=== PATIENT | female | born 1975 | race Hispanic/Latino ===

== ENCOUNTER 2021-05-22 14:45 | Emergency (ER) | payer SELFPAY ==
[2021-05-22] MEDS ORDERED: SODIUM CHLORIDE 0.9% 1000 ML 1,000 ML IV ONE (14:48)
--- NOTE | 2021-05-22 14:54 | Emergency Department Report ---
History of Present Illness - General Chief Complaint: Altered Mental Status Stated Complaint: OVERDOSE Time Seen by Provider: 05/22/21 14:48 Source: patient, EMS - History of Present Illness Initial Comments: Patient is 45 years old female with history of schizophrenia. Patient recently released from [facility] with prescription for Ativan 2mg quantity of 60 tablets. Patient brought to the emergency room via EMS from home after family found that patient is altered and her Ativan bottle is only half 12 tablets left. Patient is alert however with significant slurred speech. Family also reported that patient has been using meth. Patient is unable to answer question appropriately. Vital sign stable with oxygen saturation of 100% on room air. Will monitor patient closely. MD Complaint: intentional overdose -: This afternoon Intent: unwilling to say How Overdose Was Discovered: family/friend present Treatments Prior to Arrival: IV fluids - Related Data Allergies Allergy/AdvReac Type Severity Reaction Status Date / Time No Known Allergies Allergy Unverified 05/22/21 15:06 ED Review of Systems ROS: Stated complaint: OVERDOSE Other details as noted in HPI Comment: All other systems reviewed and negative Constitutional: denies: chills, fever Respiratory: denies: cough, shortness of breath, SOB with exertion Cardiovascular: denies: chest pain, palpitations Gastrointestinal: denies: abdominal pain, nausea, vomiting, diarrhea, constipation, hematochezia Musculoskeletal: denies: back pain Neurological: denies: headache, weakness, numbness, paresthesias, confusion ED Physical Exam - General General appearance: alert, in no apparent distress - Head Head exam: Present: atraumatic, normocephalic - Eye Eye exam: Present: normal appearance - ENT ENT exam: Present: normal exam, normal orophraynx, mucous membranes moist - Neck Neck exam: Present: normal inspection, full ROM. Absent: tenderness, meningismus - Respiratory Respiratory exam: Present: normal lung sounds bilaterally - Cardiovascular Cardiovascular Exam: Present: regular rate, normal rhythm, normal heart sounds - GI/Abdominal GI/Abdominal exam: Present: soft, normal bowel sounds. Absent: distended, tenderness, guarding, rebound, rigid, organomegaly, mass, bruit, pulsatile mass, hernia - Extremities Exam Extremities exam: Present: normal inspection, full ROM, normal capillary refill. Absent: tenderness - Back Exam Back exam: Present: normal inspection, full ROM. Absent: CVA tenderness (R), CVA tenderness (L) - Neurological Exam Neurological exam: Present: alert, oriented X3, CN II-XII intact, reflexes normal. Absent: motor sensory deficit - Psychiatric Psychiatric exam: Present: flat affect - Skin Skin exam: Present: warm, intact, normal color ED Course Vital Signs 05/22/21 05/22/21 05/22/21 14:49 16:28 17:01 Temperature 97.7 F Pulse Rate 87 89 Pulse Rate [ Bilateral Throughout] Respiratory 16 23 Rate Respiratory Rate [Bilateral Throughout] Blood Pressure 112/63 168/85 Blood Pressure 112/63 [Right] O2 Sat by Pulse 99 98 98 Oximetry 05/22/21 05/22/21 05/22/21 17:40 18:01 18:23 Temperature Pulse Rate 93 H 97 H Pulse Rate [ Bilateral Throughout] Respiratory 23 18 Rate Respiratory Rate [Bilateral Throughout] Blood Pressure 148/91 148/91 142/83 Blood Pressure [Right] O2 Sat by Pulse 85 98 99 Oximetry 05/22/21 05/22/21 05/22/21 18:42 19:01 20:00 Temperature 98.6 F Pulse Rate 96 H 96 H 86 Pulse Rate [ Bilateral Throughout] Respiratory 18 18 20 Rate Respiratory Rate [Bilateral Throughout] Blood Pressure 136/86 Blood Pressure 143/86 144/92 [Right] O2 Sat by Pulse 98 98 98 Oximetry 05/22/21 05/22/21 05/23/21 20:01 22:01 01:01 Temperature Pulse Rate 86 87 87 Pulse Rate [ Bilateral Throughout] Respiratory 19 17 21 Rate Respiratory Rate [Bilateral Throughout] Blood Pressure 144/92 115/66 115/66 Blood Pressure [Right] O2 Sat by Pulse 99 99 97 Oximetry 05/23/21 05/23/21 05/23/21 03:40 08:53 10:03 Temperature 97.8 F 98.4 F Pulse Rate 83 79 Pulse Rate [ 18 L Bilateral Throughout] Respiratory 16 18 Rate Respiratory 82 H Rate [Bilateral Throughout] Blood Pressure Blood Pressure 113/72 115/59 [Right] O2 Sat by Pulse 98 97 Oximetry 05/23/21 05/23/21 05/24/21 21:27 22:38 02:46 Temperature 99.2 F 98.4 F Pulse Rate 89 85 Pulse Rate [ Bilateral Throughout] Respiratory 18 18 18 Rate Respiratory Rate [Bilateral Throughout] Blood Pressure Blood Pressure 127/80 117/70 [Right] O2 Sat by Pulse 98 98 95 Oximetry 05/24/21 12:34 Temperature 98.8 F Pulse Rate 82 Pulse Rate [ Bilateral Throughout] Respiratory 16 Rate Respiratory Rate [Bilateral Throughout] Blood Pressure Blood Pressure 109/68 [Right] O2 Sat by Pulse 99 Oximetry ED Medical Decision Making - Lab Data Result diagrams: 05/22/21 15:07 05/22/21 15:07 - EKG Data -: EKG Interpreted by Nm EKG shows normal: sinus rhythm Rate: normal - EKG Data Interpretation: no acute changes - Medical Decision Making Patient is 45 years old female with history of schizophrenia. Patient recently released from [facility] with prescription for Ativan 2mg quantity of 60 tablets. Patient brought to the emergency room via EMS from home after family found that patient is altered and her Ativan bottle is only half 12 tablets left. Patient is alert however with significant slurred speech. F melinda also reported that patient has been using meth. Patient is unable to answer question appropriately. Vital sign stable with oxygen saturation of 100% on room air. Will monitor patient closely. Patient remained stable in the ER with a stable vital sign. Oxygen saturation remained 100% on room air. Labs reviewed and is unremarkable. Poison control contacted and stated that patient can be observed for 6 hours and then can be medically cleared after that for psychiatric assessment. Patient should be medically by 9 pm. Critical Care Time: Yes Critical care time in (mins) excluding proc time.: 35 Critical care attestation.: If time is entered above; I have spent that time in minutes in the direct care of this critically ill patient, excluding procedure time. ED Disposition Clinical Impression: Benzodiazepine overdose Disposition: [address] [place] [address] Is pt being admited?: No Condition: Stable Referrals: PRIMARY CARE, [Primary Care Provider] - 3-5 Days
[2021-05-22 15:35] LABS: Mean Corpuscular HGB Conc 30 % (30-34); Red Blood Count 4.48 M/mm3 (3.65-5.03)
[2021-05-22 15:47] LABS: Blood Urea Nitrogen 13 mg/dL (7-17); Calcium 8.8 mg/dL (8.4-10.2); Hemolysis Index 3
[2021-05-22 15:50] LABS: BUN/Creatinine Ratio 19
[2021-05-22 15:51] LABS: Alanine Aminotransferase 8 units/L (7-56); Albumin 3.9 g/dL (3.9-5)
[2021-05-22 15:55] LABS: Bilirubin,Direct < 0.2 mg/dL (0-0.2); Hematocrit 29.9 % (30.3-42.9); Hemoglobin 8.9 gm/dl (10.1-14.3); Mean Corpuscular Volume 67 fl (79-97); Red Cell Distribution Width 26.2 % (13.2-15.2)
[2021-05-22 17:49] LABS: Total Cells Counted 100
[2021-05-22 17:55] LABS: Anisocytosis 2+; Hypochromasia 2+; Ovalocytes Few; Platelet Estimate Consistent w Auto; Tear Drop Cells Few
[2021-05-22 18:00] LABS: Platelet Count 228 K/mm3 (140-440)
[2021-05-22 18:25] LABS: Bilirubin,Urine NEG (Negative); Blood,Urine SM (Negative); Color,Urine Straw (Yellow); Protein,Urine <15 mg/dL mg/dL (Negative); Urobilinogen,Urine < 2.0 mg/dL (<2.0)
[2021-05-22 18:27] LABS: Amphetamine Screen,Urine Negative; Benzodiazepines Screen,Urine Negative; Cannabinoid Screen,Urine Negative; Cocaine Screen,Urine Negative; Methadone Screen,Urine Negative; Opiate Screen,Urine Negative
--- NOTE | 2021-05-23 08:57 | Electrocardiograph Report ---
[facility] Test Date: 2021-05-22 Test Time: 16:13:03 Pat Name: REUBEN BERUMEN Department: Room: Gender: F Heel Turner: ED : 1975 Requested By: ТАТЬЯНА MOORE Order Number: [id number] Reading MD: Curly Ortiz Measurements Intervals [place] Rate: 88 P: 50 MO: 169 QRS: 14 QRSD: 97 T: 31 QT: 381 QTc: 462 Interpretive Statements Sinus rhythm Probable left atrial enlargement Low voltage, precordial leads No previous ECG available for comparison Electronically Signed On 05-23-2021 8:57:29 EST by Curly Ortiz
[2021-05-23] MEDS ORDERED: ALBUTEROL 2.5 MG/3 ML NEBU IH PRN (09:08)
--- NOTE | 2021-05-24 10:54 | Consultation ---
History of Present Illness - Reason for Consult Consult date: 05/24/21 Reason for consult: psychosis - History of Present Psychiatric Illness The patient was seen today. She is a 45y/o female patient with a history of schizophrenia, who overdosed on ativan. During my evaluation, the patient is a/o x 3. She is calm and cooperative. The patient says she wasn't long released from [place]. She tells me that she took a lot of ativan. She says her son called because she had taken too many. The patient says "I didn't realized I took so many. When asking the patient how she didn't realize she took so many, she replies "I don't know." When asking was she SI/HI the patient says "no, I really didn't know I took that many." The patient does verbalize being depressed. She denies hallucinations of any kind. PAST PSYCHIATRIC HISTORY: Diagnoses: schizophrenia Suicide attempts or Self-harm behavior: Yes Prior psychiatric hospitalizations: Yes Substance Abuse history: Denies Previous psychiatric medications tried: Benzos Outpatient treatment: Yes PAST MEDICAL HISTORY: None reported or document Family Psychiatric History: None reported or documented SOCIAL HISTORY Marital Status: Single Living Arrangements: Lives with son Employment Status: Disabled Access to guns/weapons: Denies Education: History of Abuse: Denies Legal History: Denies REVIEW OF SYSTEMS Constitutional: Negative for weight loss ENT: Negative for stridor Respiratory: Negative for cough or hemoptysis All other systems reviewed and are negative MENTAL STATUS EXAMINATION General Appearance and Behavior: Age appropriate, good hygiene, wearing appropriate clothes. calm, cooperative Cooperation: cooperative Psychomotor Behavior: Psychomotor normal Mood: depressed Affect and affective range: congruent with stated mood Thought Process: goal directed Thought Content: depression Speech: Normal tone and pace Suicidal Ideation: Denies Homicidal Ideation: Denies Hallucinations: Denies Delusions: none elicited Impulse Control: impaired Insight and Judgment: Limited Memory: limited Attention: Attentive Orientation: alert and oriented Assessment and Plan (1) Schizophrenia (2) Intentional Overdose on Benzodiazepines Treatment Plan 1013 Zoloft 25mg po daily Vistaril 50mg po BID Lorazepam 1mg IM q4h prn anxiety/benzo withdrawal Sitter: per primary Medical: per primary Disposition: Recommend acute psychiatric inpatient treatment Will follow. Thanks. Case staffed with Dr. Gonzáles Medications and Allergies Allergies Allergy/AdvReac Type Severity Reaction Status Date / Time No Known Allergies Allergy Unverified 05/22/21 15:06 Active Meds: Active Medications Albuterol (Albuterol 2.5 Mg/3 Ml Nebu) 2.5 mg IH PRN PRN PRN Reason: Wheezing Last Admin: 05/23/21 10:02 Dose: 2.5 mg Documented by: Mental Status Exam - Vital signs Last Vital Signs Temp 98.4 F 05/24/21 02:46 Pulse 85 05/24/21 02:46 Resp 18 05/24/21 02:46 BP 117/70 05/24/21 02:46 Pulse Ox 95 05/24/21 02:46 Results Result Diagrams: 05/22/21 15:07 05/22/21 15:07 All other labs normal.
--- NOTE | 2021-05-24 11:23 | Event Note ---
Date: 05/24/21 S: No overnight events. O: Vital signs stable. Patient calm and cooperative. A: Schizophrenia, overdose P: Continue 1013. Awaiting inpatient psychiatric placement.
[2021-05-24] MEDS ORDERED: SERTRALINE 25 MG TAB PO SCH (12:00)
[2021-05-24] MEDS ORDERED: LORazepam 2 MG/ML VIAL IM PRN (12:02)
[2021-05-24 12:35] VITALS: BP 109/68
== END 2021-05-24 17:01 ==
LOC: ED 14:45 → EEVIPCON 14:45 → ED 05-24 17:01
DX: T42.4X1A Poisoning by benzodiazepines, accidental (unintentional), initial encounter (principal); Z20.822 Contact with and (suspected) exposure to COVID-19; Y92.89 Other specified places as the place of occurrence of the external cause
CPT/HCPCS: 36415; 80048; 80076; 80307; 81001; 84703; 85007; 85025; 93005; 94644; 96360; 96372; 99285; J2060; J7030; Q0177; U0003; 80320; Q0162; G0480

== ENCOUNTER 2021-08-27 11:53 | Emergency (ER) | payer MEDICAID ==
[2021-08-27 12:08] VITALS: BP 135/87
--- NOTE | 2021-08-27 12:22 | Emergency Department Report ---
ED General Adult HPI - General Chief complaint: Pain General Stated complaint: LT TOE PAIN Time Seen by Provider: 08/27/21 12:18 Source: patient Mode of arrival: Ambulatory Limitations: No Limitations - History of Present Illness Initial comments: 45-year-old occasion female who is obese presents to the emergency room complaining of left foot toes are numb. Patient is in a Unna boot on her right foot. States that she saw her orthopedist yesterday and he gave her a Toradol injection. She comes in requesting for MRI. She states that her orthopedist probably can get it done for several days. Patient is on multiple narcotics and gabapentin. Patient had a recent overdose in July 14, 2021. She was admitted to the hospital for several days for acute renal failure overdose CK elevation rhabdomyolysis and tramitis. Patient complains of back pain that is followed by orthopedics as well. -: month(s) Location: left, lower extremity (Toes) Severity scale (0 -10): 10 Quality: aching, other (Numbness) Consistency: constant Improves with: none Worsens with: none Associated Symptoms: denies other symptoms - Related Data Previous Rx's Medication Instructions Recorded Last Taken Type Divalproex Dr [DepaKOTE DR] 500 mg PO BID 30 Days #60 tablet 07/25/21 Unknown Rx Ferrous Gluconate [Fergon 325 MG 325 mg PO QDAY #30 tablet 07/25/21 Unknown Rx tab] Mirtazapine [Remeron 15mg TAB] 7.5 mg PO QHS #14 tablet 07/25/21 Unknown Rx Venlafaxine [Effexor 37.5mg tab] 37.5 mg PO BID 30 Days #60 tab 07/25/21 Unknown Rx cloNIDine-TTS PATCH [Catapres-Tts 0.2 mg TD Orozco #7 patch 07/25/21 Unknown Rx 0.2mg Patch] haloperidoL [Haldol] 1 mg PO BID 30 Days #60 07/25/21 Unknown Rx hydrALAZINE [Apresoline TAB] 50 mg PO Q8HR #90 tablet 07/25/21 Unknown Rx Allergies Allergy/AdvReac Type Severity Reaction Status Date / Time morphine Allergy Unknown Verified 08/05/21 08:23 ED Review of Systems ROS: Stated complaint: LT TOE PAIN Other details as noted in HPI Comment: All other systems reviewed and negative ED Past Medical Hx - Past Medical History Previous Medical History?: Yes Hx Hypertension: Yes Hx Psychiatric Treatment: Yes (Bipolar disorder, schizoaffective) Additional medical history: Back Pain, right foot pain, right hip pain multiple overdose - Surgical History Past Surgical History?: Yes Additional Surgical History: tubal ligation, right knee surgery - Social History Smoking Status: Unknown if ever smoked - Medications Home Medications: Home Medications Medication Instructions Recorded Confirmed Last Taken Type Divalproex Dr [DepaKOTE DR] 500 mg PO BID 30 Days #60 tablet 07/25/21 Unknown Rx Ferrous Gluconate [Fergon 325 MG 325 mg PO QDAY #30 tablet 07/25/21 Unknown Rx tab] Mirtazapine [Remeron 15mg TAB] 7.5 mg PO QHS #14 tablet 07/25/21 Unknown Rx Venlafaxine [Effexor 37.5mg tab] 37.5 mg PO BID 30 Days #60 tab 07/25/21 Unknown Rx cloNIDine-TTS PATCH [Catapres-Tts 0.2 mg TD Orozco #7 patch 07/25/21 Unknown Rx 0.2mg Patch] haloperidoL [Haldol] 1 mg PO BID 30 Days #60 07/25/21 Unknown Rx hydrALAZINE [Apresoline TAB] 50 mg PO Q8HR #90 tablet 07/25/21 Unknown Rx ED Physical Exam - General Limitations: No Limitations General appearance: alert, in no apparent distress - Head Head exam: Present: atraumatic, normocephalic - Eye Eye exam: Present: normal appearance - ENT ENT exam: Present: mucous membranes moist, normal external ear exam - Neck Neck exam: Present: full ROM - Respiratory Respiratory exam: Absent: respiratory distress, accessory muscle use - Cardiovascular Cardiovascular Exam: Present: regular rate - Expanded Lower Extremity Exam Left Upper Leg exam: Present: normal inspection, full ROM Knee exam: Present: normal inspection, full ROM Lower Leg exam: Present: normal inspection, full ROM Foot/Toe exam: Present: normal inspection, full ROM. Absent: tenderness, swelling, abrasion, ecchymosis, deformity, dislocation, erythema Neuro vascular tendon exam: Present: no vascular compromise. Absent: pulse deficit Gait: Positive: antalgic (Patient is wearing a Unna boot on her right foot) ED Course Vital Signs 08/27/21 12:04 Temperature 97.7 F Pulse Rate 88 Respiratory 20 Rate Blood Pressure 135/87 [Right] O2 Sat by Pulse 99 Oximetry ED Medical Decision Making - Medical Decision Making 45-year-old occasion female who is obese presents to the emergency room complaining of left foot toes are numb. Patient is in a Unna boot on her right foot. States that she saw her orthopedist yesterday and he gave her a Toradol injection. She comes in requesting for MRI. She states that her orthopedist probably can get it done for several days. Patient is on multiple narcotics and gabapentin. Patient had a recent overdose in July 14, 2021. She was admitted to the hospital for several days for acute renal failure overdose CK elevation rhabdomyolysis and tramitis. Patient complains of back pain that is followed by orthopedics as well. Patient has a history of schizophrenia bipolar polysubstance abuse Critical care attestation.: If time is entered above; I have spent that time in minutes in the direct care of this critically ill patient, excluding procedure time. ED Disposition Clinical Impression: Numbness of toes, Back pain Disposition: HOME / SELF CARE / HOMELESS Is pt being admited?: No Does the pt Need Aspirin: No Condition: Stable Instructions: Chronic Back Pain, [id number] Additional Instructions: Recommend to follow-up orthopedist as they are able to order event studies. Continue with your pain medication. Tylenol [id number] as needed. Referrals: Your, orthopedist [Other] - 3-5 Days Time of Disposition: 12:24
== END 2021-08-27 12:59 | disposition home or self-care (01) ==
LOC: ED 11:53
DX: R20.2 Paresthesia of skin (principal); M54.9 Dorsalgia, unspecified; I10 Essential (primary) hypertension; F31.9 Bipolar disorder, unspecified; Z88.5 Allergy status to narcotic agent
CPT/HCPCS: 99282

== ENCOUNTER 2021-12-15 21:44 | Emergency (ER) | payer MEDICAID ==
[2021-12-16] MEDS ORDERED: KETOROLAC 30 MG/1 ML INJ IM ONE (08:52)
--- NOTE | 2021-12-16 09:23 | Emergency Department Report ---
ED General Adult HPI - General Chief complaint: Medical Clearance Stated complaint: MEDICATION REFILL Source: EMS Mode of arrival: Ambulatory Limitations: No Limitations - History of Present Illness Initial comments: 46-year-old female presents to the ED medication refill. Patient has a history of schizophrenia ,hypertension, , and PTSD. Patient also complaining of right leg pain. She states that she is having surgery on November. She states that she has been waiting and would like to have something for pain states that pain is current 10 out of 10. She denies any suicidal homicidal ideation. She has a current walking boot on the right leg. Patient is alert and oriented x3. No acute distress noted .No ill appearance noted. Severity scale (0 -10): 0 - Related Data Previous Rx's Medication Instructions Recorded Last Taken Type Divalproex Dr [DepaKOTE DR] 500 mg PO BID 30 Days #60 tablet 07/25/21 Unknown Rx Ferrous Gluconate [Fergon 325 MG 325 mg PO QDAY #30 tablet 07/25/21 Unknown Rx tab] Mirtazapine [Remeron 15mg TAB] 7.5 mg PO QHS #14 tablet 07/25/21 Unknown Rx Venlafaxine [Effexor 37.5mg tab] 37.5 mg PO BID 30 Days #60 tab 07/25/21 Unknown Rx cloNIDine-TTS PATCH [Catapres-Tts 0.2 mg TD Orozco #7 patch 07/25/21 Unknown Rx 0.2mg Patch] haloperidoL [Haldol] 1 mg PO BID 30 Days #60 07/25/21 Unknown Rx hydrALAZINE [Apresoline TAB] 50 mg PO Q8HR #90 tablet 07/25/21 Unknown Rx Gabapentin 400 mg PO Q8HR 15 Days #30 capsule 12/16/21 Unknown Rx QUEtiapine [SEROquel] 200 mg PO DAILY 30 Days #30 tab 12/16/21 Unknown Rx levETIRAcetam [Keppra TAB] 250 mg PO TID 15 Days #30 tab 12/16/21 Unknown Rx Allergies Allergy/AdvReac Type Severity Reaction Status Date / Time morphine Allergy Unknown Verified 08/05/21 08:23 ED Review of Systems ROS: Stated complaint: MEDICATION REFILL Other details as noted in HPI Constitutional: denies: chills, fever Eyes: denies: eye pain, eye discharge, vision change ENT: denies: ear pain, throat pain Respiratory: denies: cough, shortness of breath, wheezing Cardiovascular: denies: chest pain, palpitations Endocrine: no symptoms reported Gastrointestinal: denies: abdominal pain, nausea, diarrhea Genitourinary: denies: urgency, dysuria, discharge Musculoskeletal: denies: back pain, joint swelling, arthralgia Skin: denies: rash, lesions Neurological: denies: headache, weakness, paresthesias Psychiatric: denies: anxiety, depression Hematological/Lymphatic: denies: easy bleeding, easy bruising ED Past Medical Hx - Past Medical History Previous Medical History?: Yes Hx Hypertension: Yes Hx Psychiatric Treatment: Yes (Bipolar disorder, schizoaffective) Additional medical history: Back Pain, right foot pain, right hip pain multiple overdose - Surgical History Past Surgical History?: Yes Additional Surgical History: tubal ligation, right knee surgery - Social History Smoking Status: Unknown if ever smoked Substance Use Type: None - Medications Home Medications: Home Medications Medication Instructions Recorded Confirmed Last Taken Type Divalproex [Vita PALACIOS] 500 mg PO BID 30 Days #60 tablet 07/25/21 Unknown Rx Ferrous Gluconate [Fergon 325 MG 325 mg PO QDAY #30 tablet 07/25/21 Unknown Rx tab] Mirtazapine [Remeron 15mg TAB] 7.5 mg PO QHS #14 tablet 07/25/21 Unknown Rx Venlafaxine [Effexor 37.5mg tab] 37.5 mg PO BID 30 Days #60 tab 07/25/21 Unknown Rx cloNIDine-TTS PATCH [Catapres-Tts 0.2 mg TD Orozco #7 patch 07/25/21 Unknown Rx 0.2mg Patch] haloperidoL [Haldol] 1 mg PO BID 30 Days #60 07/25/21 Unknown Rx hydrALAZINE [Apresoline TAB] 50 mg PO Q8HR #90 tablet 07/25/21 Unknown Rx Gabapentin 400 mg PO Q8HR 15 Days #30 capsule 12/16/21 Unknown Rx QUEtiapine [SEROquel] 200 mg PO DAILY 30 Days #30 tab 12/16/21 Unknown Rx levETIRAcetam [Keppra TAB] 250 mg PO TID 15 Days #30 tab 12/16/21 Unknown Rx ED Physical Exam - General Limitations: No Limitations General appearance: alert, in no apparent distress - Head Head exam: Present: atraumatic, normocephalic - Eye Eye exam: Present: normal appearance - ENT ENT exam: Present: mucous membranes moist - Neck Neck exam: Present: normal inspection - Respiratory Respiratory exam: Present: normal lung sounds bilaterally. Absent: respiratory distress - Cardiovascular Cardiovascular Exam: Present: regular rate, normal rhythm. Absent: systolic murmur, diastolic murmur, rubs, gallop - GI/Abdominal GI/Abdominal exam: Present: soft, normal bowel sounds - Extremities Exam Extremities exam: Present: normal inspection - Back Exam Back exam: Present: normal inspection - Neurological Exam Neurological exam: Present: alert, oriented X3 - Psychiatric Psychiatric exam: Present: normal affect, normal mood - Skin Skin exam: Present: warm, dry, intact, normal color. Absent: rash ED Course Vital Signs 12/15/21 21:53 Temperature 97.8 F Pulse Rate 82 Respiratory 18 Rate Blood Pressure 130/64 O2 Sat by Pulse 96 Oximetry ED Medical Decision Making - Medical Decision Making 46-year-old female presents to the ED medication refill. Patient has a history of schizophrenia ,hypertension, and PTSD. Patient also complaining of right leg pain. She states that she is having surgery on November. She states that she has been waiting and would like to have something for pain states that pain is current 10 out of 10. She denies any suicidal homicidal ideation. She has a current walking boot on the right leg. Patient is alert and oriented x3. No acute distress noted .No ill appearance noted. Physical examination is unremarkable She medication refill for Seroquel, Keppra, and gabapentin. Rechecked the patient is resting quietly quietly and comfortable and feeling better. I discussed the results of diagnostic study, my clinical impression and the plan for further treatment with the patient. Patient agrees with plan and discharge at this present time. All question addressed. I have given the patient instruction regarding a diagnosis ,expectation ,follow- up and return precaution. I explained to the patient that emergent condition may arise and to return to the ED for new worsen and any new persisting condition. I have explained the importance of following up with the primary care physician or referral physician listed below has instructed. The patient verbalized understanding of discharge instruction. Critical care attestation.: If time is entered above; I have spent that time in minutes in the direct care of this critically ill patient, excluding procedure time. ED Disposition Clinical Impression: Medication refill Disposition: 01 HOME / SELF CARE / HOMELESS Is pt being admited?: No Does the pt Need Aspirin: No Condition: Stable Additional Instructions: Take medication as prescribed return ED for any worsening symptom Prescriptions: Gabapentin 400 mg PO Q8HR 15 Days #30 capsule levETIRAcetam [Keppra TAB] 250 mg PO TID 15 Days #30 tab QUEtiapine [SEROquel] 200 mg PO DAILY 30 Days #30 tab Referrals: [facility] [Other] - 3-5 Days Forms: Work/School Release Form(ED) Time of Disposition: 09:27
[2021-12-16 09:42] VITALS: BP 134/78
== END 2021-12-16 09:42 | disposition home or self-care (01) ==
LOC: ED 21:44
DX: F20.9 Schizophrenia, unspecified (principal); Z76.0 Encounter for issue of repeat prescription; I10 Essential (primary) hypertension; Z91.09 Other allergy status, other than to drugs and biological substances; Z79.899 Other long term (current) drug therapy
CPT/HCPCS: 96372; 99283; J1885

== ENCOUNTER 2022-01-30 21:57 | Emergency (ER) | payer MEDICAID ==
[2022-01-30] MEDS ORDERED: KETOROLAC 10 MG TAB PO PRN (22:24)
--- NOTE | 2022-01-30 22:31 | Emergency Department Report ---
HPI - General Time Seen by Provider: 01/30/22 22:18 - HPI HPI: Room 15 Patient is a 46-year-old female present with chief complaint of suicidal ideation. Patient has a history of schizoaffective disorder and states she has been compliant with her medication. Patient states for the past 3 days she has had auditory visual hallucinations. Patient states she hears voices telling her things such as "you need to give up." Patient states her visual hallucinations include seeing objects and dark shapes. Patient states yesterday she developed suicidal ideation. Patient denies any attempts at harming self, patient denies having a plan ED Past Medical Hx - Past Medical History Hx Hypertension: Yes Hx Psychiatric Treatment: Yes (Bipolar disorder, schizoaffective) Additional medical history: Back Pain, right foot pain, right hip pain multiple overdose - Surgical History Additional Surgical History: tubal ligation, right knee surgery - Family History Family history: no significant - Social History Smoking Status: Current Every Day Smoker (1 pack/day) Substance Use Type: None (Denies illicit drug use) - Medications Home Medications: Home Medications Medication Instructions Recorded Confirmed Last Taken Type Divalproex Dr [DepaKOPIETRO DR] 500 mg PO BID 30 Days #60 tablet 07/25/21 Unknown Rx Ferrous Gluconate [Fergon 325 MG 325 mg PO QDAY #30 tablet 07/25/21 Unknown Rx tab] Mirtazapine [Remeron 15mg TAB] 7.5 mg PO QHS #14 tablet 07/25/21 Unknown Rx Venlafaxine [Effexor 37.5mg tab] 37.5 mg PO BID 30 Days #60 tab 07/25/21 Unknown Rx cloNIDine-TTS PATCH [Catapres-Tts 0.2 mg TD Orozco #7 patch 07/25/21 Unknown Rx 0.2mg Patch] haloperidoL [Haldol] 1 mg PO BID 30 Days #60 07/25/21 Unknown Rx hydrALAZINE [Apresoline TAB] 50 mg PO Q8HR #90 tablet 07/25/21 Unknown Rx Gabapentin 400 mg PO Q8HR 15 Days #30 capsule 12/16/21 Unknown Rx QUEtiapine [SEROquel] 200 mg PO DAILY 30 Days #30 tab 12/16/21 Unknown Rx levETIRAcetam [Keppra TAB] 250 mg PO TID 15 Days #30 tab 12/16/21 Unknown Rx ED Review of Systems ROS: Stated complaint: MH EVAL Other details as noted in HPI Constitutional: no symptoms reported Eyes: denies: eye pain ENT: denies: throat pain Respiratory: no symptoms reported Cardiovascular: denies: chest pain Endocrine: no symptoms reported Gastrointestinal: denies: abdominal pain Genitourinary: denies: dysuria Musculoskeletal: denies: back pain Neurological: denies: headache Psychiatric: auditory hallucinations, visual hallucinations, suicidal thoughts Physical Exam - Physical Exam Physical Exam: GENERAL: The patient is well-developed well-nourished female lying on chair not appearing to be in acute distress. [] HEENT: Normocephalic. Atraumatic. Extraocular motions are intact. Patient has moist mucous membranes. NECK: Supple. Trachea midline CHEST/LUNGS: Clear to auscultation. There is no respiratory distress noted. HEART/CARDIOVASCULAR: Regular. There is no tachycardia. There is no gallop rub or murmur. ABDOMEN: Abdomen is soft, nontender. Patient has normal bowel sounds. There is no abdominal distention. SKIN: There is no rash. There is no edema. There is no diaphoresis. NEURO: The patient is awake, alert, and oriented. The patient is cooperative. The patient has no focal neurologic deficits. The patient has normal speech. GCS 15 MUSCULOSKELETAL: There is no tenderness or deformity. There is no limitation range of motion. Patient has right foot in a boot secondary to sciatica per pat ient ED Medical Decision Making - Lab Data Result diagrams: 01/30/22 22:51 01/30/22 22:51 - Differential Diagnosis Suicidal ideation Critical care attestation.: If time is entered above; I have spent that time in minutes in the direct care of this critically ill patient, excluding procedure time. ED Disposition Clinical Impression: Suicidal ideation Disposition: [facility] Is pt being admited?: No Does the pt Need Aspirin: No Condition: Stable
[2022-01-30 23:34] LABS: Alanine Aminotransferase 9 units/L (7-56); Albumin 4.1 g/dL (3.9-5); BUN/Creatinine Ratio 12; Blood Urea Nitrogen 11 mg/dL (7-17); Calcium 9.5 mg/dL (8.4-10.2); Hemolysis Index 4
[2022-01-30 23:39] LABS: Basophils % (Auto) 0.5 % (0.0-1.8); Eosinophils # (Auto) 0.4 K/mm3 (0.0-0.4); Eosinophils % (Auto) 5.2 % (0.0-4.3); Hematocrit 35.6 % (30.3-42.9); Hemoglobin 11.7 gm/dl (10.1-14.3); Lymphocytes # (Auto) 2.6 K/mm3 (1.2-5.4); Lymphocytes % (Auto) 34.8 % (13.4-35.0); Mean Corpuscular HGB Conc 33 % (30-34); Mean Corpuscular Volume 82 fl (79-97); Monocytes # (Auto) 0.6 K/mm3 (0.0-0.8); Monocytes % (Auto) 7.8 % (0.0-7.3); Platelet Count 299 K/mm3 (140-440); Red Blood Count 4.36 M/mm3 (3.65-5.03)
[2022-01-31 07:59] VITALS: BP 136/86
--- NOTE | 2022-01-31 10:55 | Consultation ---
History of Present Illness - Reason for Consult Consult date: 01/31/22 Reason for consult: depression - History of Present Psychiatric Illness The patient was seen today. She is a/o x 3. She says she's going through a transition from her long-term. The patient says she had to leave and went to live with her son. She says but the house needs a lot of work. The patient says she needs somewhere to go during the transition. The patient verbalizes feeling depressed. She denies SI/HI. She says she does hear voices from time to time telling her "basic things." She denies at present. The patient says she has a history of schizoaffective and takes her meds everyday. PAST PSYCHIATRIC HISTORY: Diagnoses: schizoaffectve Suicide attempts or Self-harm behavior: Denies Prior psychiatric hospitalizations: Yes Substance Abuse history: Denies Previous psychiatric medications tried: haldol, gabapentin Outpatient treatment: yes PAST MEDICAL HISTORY: None reported Family Psychiatric History: None reported or documented SOCIAL HISTORY Marital Status: Single Living Arrangements: with son Employment Status: unemployed Access to guns/weapons: Denies Education: History of Abuse: Denies Legal History: Denies REVIEW OF SYSTEMS ROS cannot be reliably obtained from the patient due to her confusion and somnolence. Constitutional: Negative for weight loss ENT: Negative for stridor Respiratory: Negative for cough or hemoptysis All other systems reviewed and are negative Diagnoses: Schizoaffective Treatment Plan d/c 1013 Continue home meds Sitter: defer to primary Medical: per primary Disposition: Do not recommend acute psychiatric inpatient treatment Telemarketing Sales Representative to give the patient all necessary outpatient resources including housing Will sign off. Thanks Case staffed with Dr. Gonzáles Medications and Allergies Allergies Allergy/AdvReac Type Severity Reaction Status Date / Time morphine Allergy Unknown Verified 08/05/21 08:23 Home Medications Medication Instructions Recorded Confirmed Last Taken Type Divalproex [Vita PALACIOS] 500 mg PO BID 30 Days #60 tablet 07/25/21 Unknown Rx Ferrous Gluconate [Fergon 325 MG 325 mg PO QDAY #30 tablet 07/25/21 Unknown Rx tab] Mirtazapine [Remeron 15mg TAB] 7.5 mg PO QHS #14 tablet 07/25/21 Unknown Rx Venlafaxine [Effexor 37.5mg tab] 37.5 mg PO BID 30 Days #60 tab 07/25/21 Unknown Rx cloNIDine-TTS PATCH [Catapres-Tts 0.2 mg TD Orozco #7 patch 07/25/21 Unknown Rx 0.2mg Patch] haloperidoL [Haldol] 1 mg PO BID 30 Days #60 07/25/21 Unknown Rx hydrALAZINE [Apresoline TAB] 50 mg PO Q8HR #90 tablet 07/25/21 Unknown Rx Gabapentin 400 mg PO Q8HR 15 Days #30 capsule 12/16/21 Unknown Rx QUEtiapine [SEROquel] 200 mg PO DAILY 30 Days #30 tab 12/16/21 Unknown Rx levETIRAcetam [Keppra TAB] 250 mg PO TID 15 Days #30 tab 12/16/21 Unknown Rx Active Meds: Active Medications Ketorolac Tromethamine (Ketorolac 10 Mg Tab) 10 mg PO Q6H PRN PRN Reason: Pain , Severe (7-10) Stop: 02/03/22 22:59 Last Admin: 01/31/22 08:18 Dose: 10 mg Mental Status Exam - Vital signs Last Vital Signs Temp 98.4 F 01/31/22 07:58 Pulse 72 01/31/22 07:58 Resp 18 01/31/22 07:58 BP 136/86 01/31/22 07:58 Pulse Ox 99 01/31/22 07:58 Results Result Diagrams: 01/30/22 22:51 01/30/22 22:51 Abnormal lab results 01/30/22 01/30/22 01/30/22 Range/Units 22:51 22:51 22:51 MCH 27 L (28-32) pg RDW 16.0 H (13.2-15.2) % Colbert % (Auto) 7.8 H (0.0-7.3) % Eos % (Auto) 5.2 H (0.0-4.3) % Salicylates < 0.3 L (2.8-20.0) mg/dL Acetaminophen 5.0 L (10.0-30.0) ug/mL Valproic Acid < 2.8 L (50-100) ug/mL All other labs normal.
== END 2022-01-31 12:40 | disposition home or self-care (01) ==
LOC: ED 21:57 → EEVIPCON 21:57 → EDBD 21:57 → ED 01-31 12:40
DX: R45.851 Suicidal ideations (principal); F17.200 Nicotine dependence, unspecified, uncomplicated; I10 Essential (primary) hypertension; F31.9 Bipolar disorder, unspecified
CPT/HCPCS: 36415; 80053; 80164; 80320; 84703; 85025; 99284; G0480